=== PATIENT | female | born 1985 | race African-American/Black ===

== ENCOUNTER 2019-02-02 18:43 | Emergency (ER) | payer OTHER ==
--- NOTE | 2019-02-02 18:46 | PDOC ---
Rapid Medical Evaluation Time Seen by Provider: 02/02/19 18:44 Medical Evaluation: 02/02/19 18:44 I have performed a brief in-person evaluation of this patient. The patient presents with a chief complaint of: "i think i'm ", +VU and body aches x 2 days, + test at home, LMP 3, , denies vag bldg Pertinent physical exam findings: well appearing, NAD I have ordered the following: labs, urine, US The patient will proceed to the ED for further evaluation.
[2019-02-02 18:48] VITALS: PULSE 84; BMI 32.3
[2019-02-02 19:53] LABS: HEMOGLOBIN 12.2 GM/dL (10.7-15.3); MCHC 33.1 g/dl (32.0-36.0); MEAN CELL VOLUME 78.5 fl (80-96); MEAN PLT VOLUME 8.8 fl (7.5-11.1); PLATELET COUNT 239 K/MM3 (134-434); RBC 4.71 M/mm3 (3.60-5.2); RDW 15.8 % (11.6-15.6); WHITE BLOOD COUNT 5.8 K/mm3 (4.0-10.0)
[2019-02-02 20:01] LABS: URINE APPEARANCE CLEAR; URINE BILIRUBIN NEGATIVE (NEGATIVE); URINE COLOR YELLOW; URINE GLUCOSE (UA) NEGATIVE (NEGATIVE); URINE KETONE NEGATIVE (NEGATIVE); URINE LEUK ESTERASE NEGATIVE (NEGATIVE); URINE NITRITE NEGATIVE (NEGATIVE); URINE PROTEIN NEGATIVE (NEGATIVE); URINE UROBILINOGEN 0.2 mg/dL (0.2-1.0)
[2019-02-02 20:38] LABS: ALBUMIN 3.4 g/dl (3.4-5.0); BILIRUBIN,TOTAL 0.2 mg/dL (0.2-1); CALCIUM 8.9 mg/dL (8.5-10.1); CREATININE 0.7 mg/dL (0.55-1.3); POTASSIUM 3.9 mmol/L (3.5-5.1); TOT PROT 7.4 g/dl (6.4-8.2)
--- NOTE | 2019-02-02 20:45 | PDOC ---
History of Present Illness - General Chief Complaint: Headache Stated Complaint: HEADACHE/BODY PAIN Time Seen by Provider: 02/02/19 18:44 - History of Present Illness Initial Comments: The pt is a 33F who presents for evaluation of 2 days of intermittent VU and body aches. The VU is b/l, gradual onset, throbbing, global, intermittent and not incited or exacerbated by anything she can identify. She has not tried taking anything for the pain. Denies fevers/chills, vision changes, dizziness, 02/02/19 21:02 Past History - Past Medical History Allergies/Adverse Reactions: Allergies Allergy/AdvReac Type Severity Reaction Status Date / Time No Known Allergies Allergy Verified 02/02/19 18:45 Home Medications: Ambulatory Orders NK [No Known Home Medication] 02/02/19 COPD: No - Reproductive History Is Patient Now?: Yes (#): 2 Para: 1 Spontaneous : 0 - Suicide/Smoking/Psychosocial Hx Smoking History: Never smoked Information on smoking cessation initiated: No Hx Alcohol Use: No Drug/Substance Use Hx: No Review of Systems - Review of Systems Able to Perform ROS?: Yes Comments:: GENERAL/CONSTITUTIONAL: No fever or chills. No weakness._ HEAD, EYES, EARS, NOSE AND THROAT: No change in vision. No ear pain or discharge. No sore throat._ CARDIOVASCULAR: No chest pain or shortness of breath_ RESPIRATORY: Denies cough, hemoptysis_ GASTROINTESTINAL: No nausea, vomiting, diarrhea or constipation._ GENITOURINARY: No dysuria, frequency, or change in urination._ MUSCULOSKELETAL: No joint or muscle swelling or pain. No neck or back pain._ SKIN: No rash_ NEUROLOGIC: No headache, vertigo, loss of consciousness, or change in strength/ sensation._ ENDOCRINE: No increased thirst. No abnormal weight change_ HEMATOLOGIC/LYMPHATIC: No anemia, easy bleeding, or history of blood clots._ ALLERGIC/IMMUNOLOGIC: No hives or skin allergy._ 02/02/19 20:44 Is the patient limited Croatian proficient: No *Physical Exam - Vital Signs Last Vital Signs Temp Pulse Resp BP Pulse Ox 97.8 F 84 18 136/77 100 02/02/19 18:45 02/02/19 18:45 02/02/19 20:02 02/02/19 18:45 02/02/19 18:45 - Physical Exam Comments: GENERAL: Awake, alert, and oriented to person/place/time, in no acute distress_ HEAD: No signs of trauma, normocephalic, atraumatic _ EYES: PERRLA, EOMI, sclera anicteric, conjunctiva clear_ ENT: Hearing grossly normal, nares patent, oropharynx clear without exudates. No uvular deviation. Moist mucosa_ NECK: Normal ROM, supple, no lymphadenopathy, JVD, or masses_ LUNGS: No distress, speaks full sentences, clear to auscultation bilaterally _ HEART: Regular rate and rhythm, normal S1 and S2, no murmurs appreciated, peripheral pulses normal and equal bilaterally._ ABDOMEN: Soft, nontender, normoactive bowel sounds. No guarding, no rebound. No masses_ EXTREMITIES: Normal inspection, Normal range of motion, no edema. No clubbing or cyanosis_ NEUROLOGICAL: Cranial nerves II through XII grossly intact. Normal speech, normal gait, no focal sensorimotor deficits _ SKIN: Warm, Dry, normal turgor, no rashes or lesions noted_ 02/02/19 20:44 ED Treatment Course - LABORATORY CBC & Chemistry Diagram: 02/02/19 19:25 02/02/19 19:25 - ADDITIONAL ORDERS Additional order review: Laboratory Results 02/02/19 02/02/19 19:25 19:25 Sodium 137 Potassium 3.9 Chloride 105 Carbon Dioxide 25 Anion Gap 7 L BUN 9 Creatinine 0.7 Est GFR (CKD-EPI)AfAm 130.10 Est GFR (CKD-EPI)NonAf 112.25 Random Glucose 75 Calcium 8.9 Total Bilirubin 0.2 AST 7 L ALT 16 Alkaline Phosphatase 91 Total Protein 7.4 Albumin 3.4 Beta HCG, Quant 86098.8 Urine Color Yellow Urine Appearance Clear Urine pH 6.0 Ur Specific [place] 1.023 Urine Protein Negative Urine Glucose (UA) Negative Urine Ketones Negative Urine Blood Negative Urine Nitrite Negative Urine Bilirubin Negative Urine Urobilinogen 0.2 Ur Leukocyte Esterase Negative 02/02/19 19:25 RBC 4.71 MCV 78.5 L MCHC 33.1 RDW 15.8 H MPV 8.8 *DC/Admit/Observation/Transfer Diagnosis at time of Disposition: Headache Qualifiers: Headache type: unspecified Headache chronicity pattern: unspecified pattern Intractability: not intractable Qualified Code(s): R51 - Headache Qualifiers: Weeks of gestation: 10 weeks Qualified Code(s): Z3A.10 - 10 weeks gestation of - Discharge Dispostion Disposition: AGAINST MEDICAL ADVICE Condition at time of disposition: Good Decision to Admit order: No - Referrals Referrals: Rm Pino MD [Staff Physician] - Janie Barclay MD [Staff Physician] - Chu Lawrence MD [Staff Physician] - Letty Salas MD [Staff Physician] - - Patient Instructions Printed Discharge Instructions: DI for Headache Additional Instructions: You were seen in the Emergency Department for evaluation of headache. Your labs were unremarkable, your US was notable for an intrauterine at 10 weeks. The heart rate was 100, which is low. Follow up with OBGYN within a week and your primary care provider. Review the handout provided at discharge. Return to the Emergency Department if you develop fevers/chills, vision changes, dizziness, worsening symptoms, nausea /vomiting, changes in sensation, or any new/concerning symptoms. - Post Discharge Activity
[2019-02-02 21:00] VITALS: BP 110/80; TEMP 98.3
[2019-02-02] MEDS ORDERED: ACETAMINOPHEN 325 MG TABLET (FP) PO ONE (21:01)
[2019-02-02] MEDS ORDERED: ACETAMINOPHEN 325 MG TABLET (FP) ONE (21:15)
[2019-02-02] MEDS ORDERED: SODIUM CHLORIDE 0.9% 500 ML INFUS.BAG IV ONE (21:44)
== END 2019-02-02 22:11 | disposition left against medical advice (07) ==
LOC: JER 18:43
DX: O26.891 Other specified pregnancy related conditions, first trimester (principal); R51 Headache; Z3A.10 10 weeks gestation of pregnancy
CPT/HCPCS: 36415; 76801-TC; 80053; 81003; 84702; 85027; 87086; 99284-25